=== PATIENT | male | born 1980 | race Caucasian/White ===

== ENCOUNTER 2018-02-09 20:42 | Emergency (ER) | payer BC ==
--- NOTE | 2018-02-09 21:29 | EDM.PDOC ---
ED HPI GENERAL MEDICAL PROBLEM - General Chief Complaint: Chest Pain Stated Complaint: CHEST PAIN, STRESS Time Seen by Provider: 02/09/18 21:10 Source of Information: Reports: Patient, RN History Limitations: Reports: No Limitations - History of Present Illness INITIAL COMMENTS - FREE TEXT/NARRATIVE: 37 yo non-smoking male under a lot of stress lately experienced about 15 seconds of sharp pain to the left of his sternum while on the phone having a heated discussion. Pain has come back very mildly once since. Has felt mild nausea and light-headedness at times since. Has no cardiac hx. Did not self medicate for his sx's. Is new in the area. No recent calf pain or swelling. Onset: Today Onset Date: 02/09/18 Onset Time: 19:30 Duration: Other (approx 15 sec). No: Hour(s): Location: Reports: Chest Quality: Reports: Sharp, Stabbing Severity: Severe Improves with: Reports: Other (time) Worsens with: Reports: Other (unknown) Context: Reports: Other (? increased stress) Associated Symptoms: Reports: Chest Pain (now gone), Nausea/Vomiting (mild intermittent nausea). Denies: Cough, Fever/Chills, Shortness of Breath Treatments [employer]: Reports: Other (see below) (none) Chest Pain Score (Numeric/FACES): 4 - Related Data Allergies Allergy/AdvReac Type Severity Reaction Status Date / Time No Known Allergies Allergy Verified 02/09/18 20:54 Home Meds: Home Meds NK [No Known Home Meds] 02/09/18 [History] Past Medical History Musculoskeletal History: Reports: Fracture - Infectious Disease History Infectious Disease History: Reports: Chicken Pox Social & Family History - Family History Family Medical History: Noncontributory - Tobacco Use Smoking Status *Q: Current Every Day Smoker Years of Tobacco use: 18 Packs/Tins Daily: 0.5 - Caffeine Use Caffeine Use: Reports: Soda - Recreational Drug Use Recreational Drug Use: No ED ROS GENERAL - Review of Systems Review Of Systems: See Below Constitutional: Reports: No Symptoms HEENT: Reports: No Symptoms Respiratory: Reports: Pleuritic Chest Pain. Denies: Shortness of Breath, Wheezing, Cough, Sputum, Hemoptysis Cardiovascular: Reports: Chest Pain, Lightheadedness Endocrine: Reports: No Symptoms GI/Abdominal: Reports: Nausea. Denies: Abdominal Pain, Black Stool, Bloody Stool, Constipation, Diarrhea, Melena, Vomiting : Reports: No Symptoms Musculoskeletal: Reports: No Symptoms Skin: Reports: No Symptoms Neurological: Reports: No Symptoms Psychiatric: Reports: Agitation, Anxiety ED EXAM, GENERAL - Physical Exam Exam: See Below Exam Limited By: No Limitations General Appearance: Alert, WD/WN, No Apparent Distress Eye Exam: Bilateral Eye: Normal Inspection Ears: Normal External Exam, Normal Canal, Hearing Grossly Normal, Normal TMs Ear Exam: Bilateral Ear: Auricle Normal, Canal Normal, TM normal Nose: Normal Inspection, Normal Mucosa, No Blood Throat/Mouth: Normal Inspection, Normal Lips, Normal Oropharynx, Normal Voice, No Airway Compromise Head: Atraumatic, Normocephalic Neck: Normal Inspection, Supple, Non-Tender Respiratory/Chest: No Respiratory Distress, Lungs Clear, Normal Breath Sounds, No Accessory Muscle Use Cardiovascular: Regular Rate, Rhythm, No Edema GI/Abdominal: Normal Bowel Sounds, Soft, Non-Tender, No Distention Back Exam: Normal Inspection. No: CVA Tenderness (R), CVA Tenderness (L) Extremities: Normal Inspection, Normal Range of Motion, Non-Tender, No Pedal Edema Neurological: Alert, Oriented, CN II-XII Intact, Normal Cognition, No Motor/ Sensory Deficits Psychiatric: Normal Affect, Normal Mood Skin Exam: Warm, Dry, Intact, Normal Color, No Rash Lymphatic: No Adenopathy EKG INTERPRETATION EKG Date: 02/09/18 Time: 21:25 Rhythm: NSR Rate (Beats/Min): 64 [place]: Normal P-Wave: Present QRS: Normal ST-T: Normal QT: Normal Comparison: NA - No Prior EKG Course - Vital Signs Last Recorded V/S: Last Vital Signs Temp 36.3 C 02/09/18 20:55 Pulse 62 02/09/18 20:55 Resp 16 02/09/18 20:55 BP 133/95 H 02/09/18 20:55 Pulse Ox 99 02/09/18 20:55 - Orders/Labs/Meds Orders: Active Orders 24 hr Category Date Time Status EKG Documentation Completion [RC] ASDIRECTED Care 02/09/18 21:16 Active EKG 12 Lead [EK] Routine Ther 02/09/18 21:16 Ordered Labs: Laboratory Tests 02/09/18 Range/Units 21:36 D-Dimer, Quantitative < 100 (0.0-400.0) ng/mL Departure - Departure Time of Disposition: 22:10 Disposition: Home, Self-Care 01 Condition: Good Clinical Impression: Stress, Chest pain, atypical Referrals: PCP,None [Primary Care Provider] - Forms: ED Department Discharge - My Orders Last 24 Hours: My Active Orders 02/09/18 21:16 EKG Documentation Completion [RC] ASDIRECTED EKG 12 Lead [EK] Routine - Assessment/Plan Last 24 Hours: My Active Orders 02/09/18 21:16 EKG Documentation Completion [RC] ASDIRECTED EKG 12 Lead [EK] Routine
== END 2018-02-09 22:25 | disposition home or self-care (01) ==
LOC: JP.ED 20:42
DX: F43.9 Reaction to severe stress, unspecified (principal); R07.89 Other chest pain; F17.210 Nicotine dependence, cigarettes, uncomplicated
CPT/HCPCS: 36415; 85379; 93005; 99285-25

== ENCOUNTER 2024-02-26 01:07 | Emergency (ER) | payer SELFPAY ==
[2024-02-26] MEDS: HYDROmorphone 1 MG/ML Syringe IM ONE (01:47)
== END 2024-02-26 02:29 ==
LOC: JP.ED 01:07
DX: M54.50 Low back pain, unspecified (principal)
CPT/HCPCS: 96372; 99283; 99284; J1170